=== PATIENT | male | born 1975 | race Caucasian/White ===

== ENCOUNTER 2023-05-27 23:12 | Emergency (ER) | payer OTHER ==
[~2023-05-27] VITALS: Ht 167.6 cm; Wt 99.8 kg
[2023-05-27 23:18] VITALS: BP 129/75; PULSE 96; RESP 20; TEMP 98.5; O2SAT 99
[2023-05-28 00:08] VITALS: BP 129/75; PULSE 96; RESP 20; TEMP 98.5; O2SAT 99
== END 2023-05-28 00:08 ==
LOC: MED 23:12
DX: S93.402A Sprain of unspecified ligament of left ankle, initial encounter (principal); I10 Essential (primary) hypertension; Z79.899 Other long term (current) drug therapy; X58.XXXA Exposure to other specified factors, initial encounter; Y93.89 Activity, other specified; Y92.89 Other specified places as the place of occurrence of the external cause; Y99.8 Other external cause status
CPT/HCPCS: 73610; 99283